=== PATIENT | female | born 1945 | race Caucasian/White ===

== ENCOUNTER 2018-12-11 19:32 | Emergency (ER) | payer MEDICARE, SELFPAY ==
[2018-12-11 19:53] VITALS: BP 144/75; PULSE 97; RESP 22; TEMP 38.2; O2SAT 96; BMI 35.4
--- NOTE | 2018-12-11 19:59 | HMH.EDUTC ---
[facility] [place] Clinical Impression: Sinusitis Qualifiers: Sinusitis location: unspecified location Chronicity: unspecified Qualified Code(s): J32.9 - Chronic sinusitis, unspecified Disposition: Home, Self-Care Condition on Discharge: Good Instructions: Sinusitis, Sinus Headache, DI for Sinusitis Additional Instructions: Start antibiotic. Sinus infections may take 2-3 days to notice much improvement so be sure to use conservative measures as discussed for symptoms Flonase 2 spray in each nostril daily to help with nasal congestion, sinus an ear pressure/inflammation Lots of Fluids Sleep elevated Humidifer/vaporizer Make sure to take medication as prescribed for length of time prescribed Return if needed Augmentin can cause GI effects. Probiotics may help to prevent these symptoms Follow up with family doctor if no improvement or any worsening of symptoms Straight to ER if any life threatening symptoms Prescriptions: Amoxicillin/Potassium Clav [Augmentin 875-125 Tablet] 1 tab PO Q12H 5 Days #10 tab Referrals: Provider,Referral, MD [Primary Care Provider] - As needed Time of Disposition: 20:22 Medical Decision Making - Kaleb Inquiry Pt receiving controlled substance: No Kaleb was queried for this patient: No Vital Signs: 12/11/18 19:53 Temperature 100.8 F H Temperature Source Oral Pulse Rate [Right Brachial] 97 H Respiratory Rate 22 Blood Pressure [Right Arm] 144/75 H Blood Pressure Mean [Right Arm] 98 Blood Pressure Source [Right Arm] Automatic Cuff Blood Pressure Position [Right Arm] Sitting 02 Sat by Pulse Oximetry 96 Oxygen Delivery Method Room Air - Lab Data Lab results reviewed: Yes: I reviewed the patient's lab results. Lab Results 12/11/18 19:56: Strep Scn Rapid Clinic Negative Orders (Tests/Meds): ORDERS Category Date Time Status Strep Screen Confirmation Stat Micro 12/11/18 19:56 Received [facility] [place] - General Stated complaint: COUGH,lal,sINUS iNFECTION,WEAKBESS Time Seen by Provider: 12/11/18 19:59 Mode of Arrival: Family Vehicle Source of Information: Patient Limitations: No Limitations Description of Symptoms (Recalled from Triage Doc. by RN): c/o SINUS PAIN,SORE THROAT, ACHING ALL OVER AND EXPOSURE TO STREP THIS WEEK HEENT Symptoms (Recalled from RN notes): Yes Resp Symptoms (Recalled from RN notes): No Skin Symptoms (Recalled from RN notes): No MS Symptoms (Recalled from RN notes): No Functional Status (Recalled from RN notes): N/A - History of Present Illness Provider Complaint: Patient state that she has a history of sinus infections States that she has been having sinus pain and pressure on and off and thought it was allergies State that she was exposed to strep last week State that on Thursday she started having sinus pain and pressure again and sore throat and has continued to get worse State that she is feeling achy all over and felt feverish earlier so she came in to get checked out - Related Data Home Medications Medication Instructions Recorded Confirmed Fluoxetine HCl 40 mg PO DAILY 12/11/18 12/11/18 Fluticasone Propionate [Flovent 50 mcg IH DIRECTED 12/11/18 12/11/18 Diskus] Glimepiride 1 tab PO BID 12/11/18 12/11/18 Insulin Glargine,Hum.rec.anlog 58 unit SQ DAILY 12/11/18 12/11/18 [Insulin Glargine 100 Units/mL 3mL flexpen] Insulin Lispro [Humalog Kwikpen 100 unit SQ DIRECTED 12/11/18 12/11/18 U-100] Lisinopril/Hydrochlorothiazide 1 tab PO DAILY 12/11/18 12/11/18 [Lisinopril-Hctz 20-25 mg Tab] Loratadine [Allerclear] 10 mg PO DAILY 12/11/18 12/11/18 Metformin HCl [Metformin HCl ER] 2 tab PO BID 12/11/18 12/11/18 Omeprazole [Omeprazole 20mg 20 mg PO DAILY 12/11/18 12/11/18 Capsule] Simvastatin 40 mg PO HS 12/11/18 12/11/18 Previous Rx's Medication Instructions Recorded Amoxicillin/Potassium Clav 1 tab PO Q12H 5 Days #10 tab 12/11/18 [Augmentin 875-125 Tablet] Allergies Allergy/AdvReac Type Severity Reaction S
[2018-12-11 20:02] LABS: UTC Strep Screen (Rapid) Negative (Negative)
--- NOTE | 2018-12-11 20:02 | ED_ITS ---
[facility] [place] Impression: Sinusitis Qualifiers: Sinusitis location: unspecified location Chronicity: unspecified Qualified Code(s): J32.9 - Chronic sinusitis, unspecified Disposition: Home, Self-Care Condition on Discharge: Good Instructions: Sinusitis, Sinus Headache, DI for Sinusitis Additional Instructions: Start antibiotic. Sinus infections may take 2-3 days to notice much improvement so be sure to use conservative measures as discussed for symptoms Flonase 2 spray in each nostril daily to help with nasal congestion, sinus an ear pressure/inflammation Lots of Fluids Sleep elevated Humidifer/vaporizer Make sure to take medication as prescribed for length of time prescribed Return if needed Augmentin can cause GI effects. Probiotics may help to prevent these symptoms Follow up with family doctor if no improvement or any worsening of symptoms Straight to ER if any life threatening symptoms Prescriptions: Amoxicillin/Potassium Clav [Augmentin 875-125 Tablet] 1 tab PO Q12H 5 Days #10 tab Referrals: Provider,Referral, MD [Primary Care Provider] - As needed Time of Disposition: 20:22 Medical Decision Making - Kaleb Inquiry Pt receiving controlled substance: No Kaleb was queried for this patient: No Vital Signs: 12/11/18 19:53 Temperature 100.8 F H Temperature Source Oral Pulse Rate [Right Brachial] 97 H Respiratory Rate 22 Blood Pressure [Right Arm] 144/75 H Blood Pressure Mean [Right Arm] 98 Blood Pressure Source [Right Arm] Automatic Cuff Blood Pressure Position [Right Arm] Sitting 02 Sat by Pulse Oximetry 96 Oxygen Delivery Method Room Air - Lab Data Lab results reviewed: Yes: I reviewed the patient's lab results. Lab Results 12/11/18 19:56: Strep Scn Rapid Clinic Negative Orders (Tests/Meds): ORDERS Category Date Time Status Strep Screen Confirmation Stat Micro 12/11/18 19:56 Received [facility] [place] - General Stated complaint: COUGH,lal,sINUS iNFECTION,WEAKBESS Time Seen by Provider: 12/11/18 19:59 Mode of Arrival: Family Vehicle Source of Information: Patient Limitations: No Limitations Description of Symptoms (Recalled from Triage Doc. by RN): c/o SINUS PAIN,SORE THROAT, ACHING ALL OVER AND EXPOSURE TO STREP THIS WEEK HEENT Symptoms (Recalled from RN notes): Yes Resp Symptoms (Recalled from RN notes): No Skin Symptoms (Recalled from RN notes): No MS Symptoms (Recalled from RN notes): No Functional Status (Recalled from RN notes): N/A - History of Present Illness Provider Complaint: Patient state that she has a history of sinus infections States that she has been having sinus pain and pressure on and off and thought it was allergies State that she was exposed to strep last week State that on Thursday she started having sinus pain and pressure again and sore throat and has continued to get worse State that she is feeling achy all over and felt feverish earlier so she came in to get checked out - Related Data Home Medications Medication Instructions Recorded Confirmed Fluoxetine HCl 40 mg PO DAILY 12/11/18 12/11/18 Fluticasone Propionate [Flovent 50 mcg IH DIRECTED 12/11/18 12/11/18 Diskus] Glimepiride 1 tab PO BID 12/11/18 12/11/18 Insulin Glargine,Hum.rec.anlog 58 unit SQ DAILY
[2018-12-11 20:33] VITALS: BP 144/75; PULSE 97; RESP 22; TEMP 38.2; O2SAT 96
== END 2018-12-11 20:36 | disposition home or self-care (01) ==
PROVIDERS: Emergency Provider Nurse Practitioner
DX: J32.9 Chronic sinusitis, unspecified (principal); E11.9 Type 2 diabetes mellitus without complications; Z79.4 Long term (current) use of insulin; Z79.84 Long term (current) use of oral hypoglycemic drugs
CPT/HCPCS: G0463; 87880; 99201

== ENCOUNTER 2022-01-12 14:09 | Emergency (ER) | payer MEDICARE, OTHER, SELFPAY ==
[2022-01-12 14:42] VITALS: BP 137/62; PULSE 101; RESP 17; TEMP 38.8; O2SAT 95; BMI 36.6
[2022-01-12 14:51] LABS: Strep Scrn Group A (Rapid) Negative (Negative)
--- NOTE | 2022-01-12 15:06 | XR_ITS ---
PROCEDURE INFORMATION: Exam: XR Chest Exam date and time: 01/12/2022 3:03 PM Age: 76 years old Clinical indication: Cough TECHNIQUE: Imaging protocol: Radiologic exam of the chest. Views: 2 views. COMPARISON: No relevant prior studies available. FINDINGS: Airway: Patent Lungs: Calcified granuloma in the right lung base is of no clinical concern. Mild COPD related lung changes. Bilateral segmental bronchial wall thickening. No acute interstitial or airspace disease. Pleural spaces: Unremarkable. No pleural effusion. No pneumothorax. Heart/Mediastinum: Unremarkable. No cardiomegaly. Bones/joints: No acute skeletal abnormality or aggressive osseous lesion. IMPRESSION: Acute bronchitis versus reactive airways disease. No definitive evidence of lobar pneumonia.
--- NOTE | 2022-01-12 15:06 | HMH.EDUTC ---
[facility] [place] Impression: Bronchitis Sinusitis Qualifiers: Sinusitis location: unspecified location Chronicity: acute Recurrence: non-recurrent Qualified Code(s): J01.90 - Acute sinusitis, unspecified Disposition: Home, Self-Care Condition on Discharge: Good Instructions: DI for Sinusitis, DI for Acute Bronchitis Additional Instructions: Drink plenty of fluids. Take tylenol or ibuprofen for pain or fever. Take the medications as directed. Follow up with your regular doctor. GO TO THE ER FOR ANY WORSENING SYMPTOMS Prescriptions: Benzonatate [Benzonatate 100mg cap] 100 mg PO TIDP PRN #30 cap PRN Reason: Cough Transmission Status: Received by [id number] Azithromycin [Z-Keron 250mg Tab*] 250 mg PO UD DOSE PK #6 tab Transmission Status: Received by [id number] Referrals: Nettie Zafar MD [Primary Care Provider] - Time of Disposition: 16:18 Medical Decision Making - Medical Records Medical records reviewed: No: I reviewed the patient's medical records. - Kaleb Inquiry Pt receiving controlled substance: No Vital Signs: 01/12/22 14:42 01/12/22 16:27 Temperature 101.8 F H 100.1 F H Temperature Source Oral Oral Pulse Rate 101 H Pulse Rate [Left] 101 H Respiratory Rate 17 18 Blood Pressure 137/62 Blood Pressure [Right Arm] 137/62 Blood Pressure Mean [Right Arm] 87 02 Sat by Pulse Oximetry 95 - Lab Data Lab Results 01/12/22 14:30: Group A Strep Rapid Negative 01/12/22 15:02: POC Glucose 86 01/12/22 15:31: WBC 8.7, RBC 4.21, Hgb 12.5, Hct 39.8, MCV 94.6, MCH 29.7, MCHC 31.3 L, RDW 13.6, Plt Count 383, MPV 7.9, Neut % (Auto) 54.7, Lymph % (Auto) 33.0, [place] % (Auto) 8.9, Eos % (Auto) 1.5, Baso % (Auto) 1.9, Neut # (Auto) 4.7, Lymph # (Auto) 2.9, [place] # (Auto) 0.8, Eos # (Auto) 0.1, Baso # (Auto) 0.2 01/12/22 15:31: Sodium 133 L, Potassium 3.6, Chloride 98, Carbon Dioxide 25, Anion Gap 13.6, BUN 12, Creatinine 0.70, Estimated Creat Clear 67, Estimated GFR 81, Est GFR ( Amer) 98, Glucose 80, Calcium 9.5 Result diagrams: 01/12/22 15:31 01/12/22 15:31 Orders (Tests/Meds): ORDERS Category Date Time Status Strep Screen Confirmation Stat Micro 01/12/22 14:30 Received [facility] [place] - General Stated complaint: weakness, sinus pressure, low glucose, chills Time Seen by Provider: 01/12/22 15:06 Description of Symptoms (Recalled from Triage Doc. by RN): patient comes in with complaints of sore throat, sinus issues, lethargy, and weakness. syptoms began yesterday HEENT Symptoms (Recalled from RN notes): Yes Resp Symptoms (Recalled from RN notes): Yes Skin Symptoms (Recalled from RN notes): No MS Symptoms (Recalled from RN notes): No Functional Status (Recalled from RN notes): wnl - History of Present Illness Provider Complaint: She states that for the past 2 days she has had a cough and ran a fever. She denies any chest pain. She is a diabetic and she states that her blood sugar was 83 earlier which is low for her. - Related Data Home Medications Medication Instructions Recorded Confirmed Fluoxetine HCl 40 mg PO DAILY 12/11/18 12/11/18 Fluticasone Propionate [Flovent 50 mcg IH DIRECTED 12/11/18 12/11/18 Diskus] Glimepiride 1 tab PO BID 12/11/18 12/11/18 Insulin Glargine,Hum.rec.anlog 58 unit SQ DAILY 12/11/18 12/11/18 [Lantus Solostar 100 Units/mL 3mL flexpen] Insulin Lispro [Humalog Kwikpen 100 unit SQ DIRECTED 12/11/18 12/11/18 U-100] Lisinopril/Hydrochlorothiazide 1 tab PO DAILY 12/11/18 12/11/18 [Lisinopril-Hctz 20-25 mg Tab] Loratadine [Allerclear] 10 mg PO DAILY 12/11/18 12/11/18 Metformin HCl [Metformin HCl ER] 2 tab PO BID 12/11/18 12/11/18 Omeprazole [Omeprazole 20mg 20 mg PO DAILY 12/11/18 12/11/18 Capsule] Simvastatin 40 mg PO HS 12/11/18 12/11/18 Previous Rx's Medication Instructions Recorded Benzonatate [Tessalon Perle 100mg 100 mg PO TIDP PRN #30 cap 12/13/18 Cap]
[2022-01-12 15:23] LABS: POC Glucose,Bedside 86 (70-110)
[2022-01-12 15:41] LABS: Basophils # 0.2 K/mm3 (0-0.2); Basophils % 1.9 % (0.1-2.0); Eosinophils # 0.1 K/mm3 (0.0-0.4); Eosinophils % 1.5 % (0.1-12.0); Hematocrit 39.8 % (37.0-47.0); Hemoglobin 12.5 g/dL (12.2-16.2); Lymphocytes # 2.9 K/mm3 (0.7-4.5); Mean Corpuscular HGB Conc 31.3 g/dL (31.8-35.4); Mean Corpuscular Hemoglobin 29.7 pg (27.0-31.2); Mean Corpuscular Volume 94.6 fl (81-99); Mean Platelet Volume 7.9 fl (7.4-10.4); Monocytes # 0.8 K/mm3 (0.1-1.0); Monocytes % 8.9 % (1.7-9.3); Neutrophils # 4.7 K/mm3 (1.8-7.8); Neutrophils % 54.7 % (37.0-80.0); Platelet Count 383 K/mm3 (142-424); Red Blood Count 4.21 M/mm3 (4.20-5.40); Red Cell Distribution Width 13.6 % (11.5-17.5); White Blood Count 8.7 K/mm3 (4.8-10.8)
[2022-01-12 15:45] LABS: Chloride 98 mmol/L (98-107); Sodium 133 mmol/L (136-145)
[2022-01-12 15:46] LABS: Potassium 3.6 mmoL/L (3.5-5.1)
[2022-01-12 15:48] LABS: Blood Urea Nitrogen 12 mg/dl (7-17); Carbon Dioxide 25 mmol/L (22.0-30.0); Creatinine Clearance Estimated 67 mL/min (50-200); Estimated Glomerular Filt Rate 81 ml/min (>60); GFR (African American) 98 ML/MIN (>60)
[2022-01-12 15:49] LABS: Anion Gap 13.6 mEq/L (5-15); Calcium 9.5 mg/dl (8.4-10.2); Glucose 80 mg/dl (74-100)
[2022-01-12 16:27] VITALS: BP 137/62; PULSE 101; RESP 18; TEMP 37.8
== END 2022-01-12 16:29 | disposition home or self-care (01) ==
PROVIDERS: Emergency Provider Nurse Practitioner Family; PCP Internal Medicine
DX: U07.1 COVID-19 (principal); J01.90 Acute sinusitis, unspecified; R53.1 Weakness; R50.9 Fever, unspecified
CPT/HCPCS: 71046; 80048; 82962; 85025; 87430; 99212; C9803; G0463; U0003; U0005

== ENCOUNTER 2022-03-22 07:32 | Emergency (ER) | payer MEDICARE, OTHER, SELFPAY ==
[2022-03-22 07:38] VITALS: BP 154/79; PULSE 74; RESP 18; O2SAT 97
[2022-03-22 07:43] VITALS: BMI 36.6
[2022-03-22 07:45] VITALS: BP 154/79; PULSE 82; RESP 17; TEMP 36.8; O2SAT 96; BMI 36.6
--- NOTE | 2022-03-22 07:45 | CT_ITS ---
PROCEDURE INFORMATION: Exam: CT Head Without Contrast Exam date and time: 03/22/2022 7:53 AM Age: 76 years old Clinical indication: Injury or trauma; Fall; Laceration; Without loss of consciousness; Without residual foreign body; Head, generalized; Additional info: Fall-hit head-- back of head small laceration TECHNIQUE: Imaging protocol: Computed tomography of the head without contrast. Radiation optimization: All CT scans at this facility use at least one of these dose optimization techniques: automated exposure control; mA and/or kV adjustment per patient size (includes targeted exams where dose is matched to clinical indication); or iterative reconstruction. COMPARISON: No relevant prior studies available. FINDINGS: Brain: Intracranial vascular calcifications are present. Mild generalized intracranial volume loss is present. There is mild diffuse heterogeneity of the white matter attenuation, consistent with chronic white matter ischemic changes. There is no evidence of acute intracranial hemorrhage. No mass effect or midline shift. Cerebral ventricles: No ventriculomegaly. Paranasal sinuses: Visualized sinuses are unremarkable. No fluid levels. Mastoid air cells: Visualized mastoid air cells are well aerated. Orbital cavities: Bilateral lens replacements noted. Bones/joints: Unremarkable. No acute fracture. Soft tissues: Small hematoma right posterior scalp. IMPRESSION: 1. Age-related atrophy and chronic white matter ischemic changes, with no evidence of an acute intracranial abnormality. 2. Small hematoma right posterior scalp.
--- NOTE | 2022-03-22 07:49 | PC.NURSE ---
daughter at bedside. no needs voiced. rad orders placed.
--- NOTE | 2022-03-22 07:58 | PC.NURSE ---
pt to ct at this time
--- NOTE | 2022-03-22 08:02 | PC.NURSE ---
pt returned from CT
[2022-03-22 08:03] VITALS: BP 151/80; PULSE 79; RESP 14; O2SAT 96
--- NOTE | 2022-03-22 08:03 | PC.NURSE ---
Pt returned from radiology via stretcher.
--- NOTE | 2022-03-22 08:10 | HMH.EDGENADL ---
Discharge Plan Disposition Patient Disposition: Home, Self-Care Condition: Good Prescriptions Prescriptions: No Action fluoxetine 40 MG capsule 40 mg PO DAILY fluticasone propionate 50 MCG blister with device 50 mcg IH DIRECTED simvastatin 40 MG tablet 40 mg PO HS glimepiride 4 MG tablet 1 tab PO BID omeprazole 20 MG capsule,delayed release(DR/EC) 20 mg PO DAILY lisinopril-hydrochlorothiazide 20 MG-2 tablet 1 tab PO DAILY metformin 500 MG tablet extended release 24 hr 2 tab PO BID loratadine 10 MG tablet 10 mg PO DAILY insulin lispro 100 UNIT/ML insulin pen 100 unit SQ DIRECTED Rx Instructions: 14 UNITS ACB,5 UNITS ACL,14 UNITS ACSUPPER insulin glargine 100/ML insulin pen 58 unit SQ DAILY benzonatate 100 MG capsule 100 mg PO TIDP PRN (Reason: Cough) Qty: 30 0RF azithromycin 250 MG tablet 250 mg PO UD DOSE PK Qty: 6 0RF Rx Instructions: Take two (2) tablets today, then one (1) tablet days #2 thru #5 benzonatate 100 MG capsule 100 mg PO TIDP PRN (Reason: Cough) Qty: 30 0RF Referrals Follow up/Referrals: Nettie Zafar MD [Primary Care Provider] - See instructions Activity Restrictions/Add. Instructions Additional Instructions/Restrictions: You have been evaluated for fall, head injury, concussion, scalp laceration. Please monitor your symptoms at home. Tylenol and Motrin for pain. Keep laceration dry for 24 hours. Okay to shower after that. Follow-up with your primary care doctor in 10 to 12 days for staple removal. Return to the emergency department at once for any new or worsening symptoms, headache, vision changes, nausea, vomiting, other concerns Clinical Impressions Clinical Impression: Laceration of occipital scalp, Fall, Concussion Instructions Patient Instructions: DI for Concussion, DI for Laceration Repair -- Lenora Discharge ED Provider: Ciara Castle Adult HPI General Chief complaint: Fall Stated complaint: fall 03/22/22 hit head Time Seen by Provider: 03/22/22 08:00 Mode of Arrival: Ambulatory Source of Information: Patient Limitations: No Limitations Description of Symptoms (Recalled from ER Triage Doc. by RN): pt to ed c/o fall. pt reports slipping in her kitchen and hitting her head on her oven handle. pt denies LOC. pt denies headache/dizziness. pt denies n/v. pt denies taking any blood thinners. History of Present Illness HPI narrative: 76-year-old female presenting to the emergency department with head injury after a fall. Incident happened just prior to arrival. She was stomping on a mouse trap when she lost her balance and fell. She fell backwards and struck the back of her head on a piece of furniture. No loss of consciousness. She has a small cut with some bleeding. Was able to get up without help. Has a slight headache that is dull and throbbing, located in the posterior. No vision changes. No neck pain. No numbness, weakness, tingling in the arms or legs. She does not take any blood thinning medications, not even aspirin. No frequent falls. No preceding chest pain, palpitations, vision changes. No medications prior to arrival Related Data Home Medications Medication Instructions Recorded Confirmed fluoxetine 40 mg capsule 40 mg PO DAILY Depression 12/11/18 12/11/18 fluticasone propionate 50 50 mcg IH DIRECTED Breathing 12/11/18 12/11/18 mcg/actuation blister powder for problems inhalation glimepiride 4 mg tablet 1 tab PO BID DM 12/11/18 12/11/18 insulin glargine 100 unit/mL (3 58 unit SQ DAILY DM 12/11/18 12/11/18 mL) subcutaneous pen insulin lispro 100 unit/mL 100 unit SQ DIRECTED DM 12/11/18 12/11/18 subcutaneous pen lisinopril 20 1 tab PO DAILY HTN 12/11/18 12/11/18 mg-hydrochlorothiazide 25 mg tablet loratadine 10 mg tablet 10 mg PO DAILY ALLERGIES 12/11/18 12/11/18 metformin 500 mg tablet,extended 2 tab PO BID DM 12/11/18 12/11/18
--- NOTE | 2022-03-22 08:14 | PC.NURSE ---
laceration cleaned and wet dressing applied to await MD suture repair
[2022-03-22 08:15] VITALS: BP 142/75; PULSE 77; RESP 19; O2SAT 96
[2022-03-22 08:31] VITALS: BP 153/79; PULSE 74; RESP 18; O2SAT 97
[2022-03-22 08:55] VITALS: BP 153/79; PULSE 74; RESP 18; TEMP 36.8; O2SAT 97
== END 2022-03-22 08:57 | disposition home or self-care (01) ==
PROVIDERS: Emergency Provider Emergency Medicine; PCP Internal Medicine
DX: S01.01XA Laceration without foreign body of scalp, initial encounter (principal); S06.0X0A Concussion without loss of consciousness, initial encounter; W01.198A Fall on same level from slipping, tripping and stumbling with subsequent striking against other object, initial encounter; Y92.010 Kitchen of single-family (private) house as the place of occurrence of the external cause
CPT/HCPCS: 12001; 70450; 99284